=== PATIENT | male | born 1965 | race Caucasian/White ===

== ENCOUNTER 2021-09-25 19:51 | Inpatient (IN) | payer OTHER ==
[~2021-09-25] VITALS: Ht 180.3 cm; Wt 99.8 kg
[2021-09-25 19:59] VITALS: BP_SYST 189
[2021-09-25 20:48] LABS: BILIRUBIN,URINE NEGATIVE (NEGATIVE); BLOOD, URINE 2+ (NEGATIVE); CLARITY/URINE CLEAR (CLEAR); COLOR,URINE YELLOW (YELLOW); GLUCOSE,URINE 1+ (NEGATIVE); KETONES,URINE NEGATIVE (NEGATIVE); LEUKOCYTE ESTERASE ,URINE NEGATIVE (NEGATIVE); NITRITE, URINE NEGATIVE (NEGATIVE); PROTEIN URINE 3+ (NEGATIVE); UROBILINOGEN,URINE 0.2 (0.2-1.0)
[2021-09-25 20:55] LABS: BACTERIA,URINE None Seen /HPF (None Seen); MUCUS,URINE None Seen /LPF (None Seen); RBC,URINE NONE SEEN /HPF (0-3); WBC,URINE 0-3 /HPF (0-3)
[2021-09-25 21:05] LABS: BASOPHILS % (AUTO) 0.8 % (0.0-2.0); EOSINOPHILS # (AUTO) 0.1 K/uL (0.0-0.4); HEMATOCRIT 24.5 % (36-54); HEMOGLOBIN 8.4 g/dL (14.0-18.0); LYMPHOCYTES # (AUTO) 0.7 K/uL (1.0-5.5); LYMPHOCYTES % (AUTO) 14.2 % (20.5-51.5); MEAN CORPUSCULAR HEMOGLOBIN 32 pg (27-31); MEAN CORPUSCULAR HGB CONC 34 % (32-36); MEAN CORPUSCULAR VOLUME 94 fL (79.0-98.0); MONOCYTES # (AUTO) 0.4 K/uL (0.0-1.0); MONOCYTES % (AUTO) 7.5 % (1.7-9.3); NEUTROPHILS # (AUTO) 3.9 K/uL (1.8-7.7); NEUTROPHILS % (AUTO) 75.5 % (40.0-70.0); PLATELET COUNT (AUTO) 217 K/uL (130-430); RED BLOOD CELL COUNT(AUTO) 2.62 MIL/uL (4.2-6.2); RED CELL DISTRIBUTION WIDTH 13.6 % (9.0-15.0); WHITE BLOOD COUNT (AUTO) 5.1 K/uL (4.8-10.8)
[2021-09-25 21:09] LABS: CREATININE 5.49 mg/dL (0.55-1.30); POTASSIUM 4.7 mmol/L (3.5-5.1)
[2021-09-25 21:10] LABS: PROTHROMBIN TIME 10.2 SECS (9.5-12.5)
[2021-09-25 21:14] LABS: ALBUMIN 2.4 g/dL (3.4-4.8); TOTAL BILIRUBIN 0.2 mg/dL (0.0-1.0)
--- NOTE | 2021-09-25 21:18 | NUR ---
Patient to ER bed 02 to gown for evaluation. Side rails up.
--- NOTE | 2021-09-25 21:18 | NUR ---
Report given to Neil NEVAREZ
--- NOTE | 2021-09-25 21:35 | NUR ---
PT DROVE HIMSELF, BUT ALLEGES HE HAS HARD TIME SEING EVEN WITH HIS GLASSES.PT PRESENTED TO ER WITH COMPLIANTS OF SHORTNESS OF BREAST,CHEST PAIN, RIGHT LEG AND RIGHT ARM PAIN AND ADEMA, PT ALSO STATED HE HAS HAD A BAD HEADACHE FOR THE PAST MONTH OF 01/06. PT VS ARE WITHIN NORMAL LIMITS. PT IS IN BED WITH BED LOWERED, LOCKED AND RAILS UP. WILL CONTINUE TO MONITOR.
--- NOTE | 2021-09-25 21:47 | NUR ---
ASSESS PT FEET, PT HAS A A BLISTER ON HIS RIGHT BIG TOE. PT DOES HAVE A HX OF SEIZURES, LAST SEIZURE WAS IN 2019. PT DOES STATE HE DRINKS LAST DRINK WAS THIS MORNING AT 10AM.
[2021-09-25 21:48] LABS: CALCIUM 6.8 mg/dL (8.4-11.0)
[2021-09-25] MEDS ORDERED: CALCIUM GLUCONATE 1 GM in NS 100 ML IV ONE (23:15)
[2021-09-25] MEDS ORDERED: hydrALAZINE HCL 20 MG/ML VIAL IVP ONE (23:30)
[2021-09-25] MEDS ORDERED: NITROGLYCERIN 1 INCH (GM) OINT. TP ONE (23:30)
[2021-09-25] MEDS ORDERED: FUROSEMIDE 100 MG/10 ML VIAL IVP ONE (23:30)
[2021-09-25 23:56] LABS: BARBITURATE, URINE NEGATIVE (NEG <=200); BENZODIAZEPINE, URINE NEGATIVE (NEG <=150); COCAINE, URINE NEGATIVE (NEG <=150); METHAMPHETAMINES SCREEN,URINE POSITIVE (NEG <=500); URINE AMPHETAMINE POSITIVE (NEG <=500); URINE METHADONE NEGATIVE (NEG <=200)
[2021-09-25 23:57] LABS: CANNABINOID, URINE POSITIVE (NEG <=50); OPIATE, URINE NEGATIVE (NEG <=100); PHENCYCLIDINE SCREEN,URINE NEGATIVE (NEG <=25); UR TRICYCLIC ANTIDEPRESSANTS NEGATIVE (NEG <=300); URINE OXYCODONE SCREEN NEGATIVE (NEG <=100); URINE PROPOXYPHENE SCREEN NEGATIVE (NEG <=300)
[2021-09-26] MEDS ORDERED: CALCIUM GLUCONATE 1 GM/10 ML VIAL ONE (00:05)
--- NOTE | 2021-09-26 00:26 | NUR ---
Admit bed requested Patient will be admitted to care of . Admitted to TELE unit. Diagnosis SOB Inpatient (Yes or No) YES Observation (Yes or No) NO Orientation concerns or request close to nursing station (Yes or No) NO Covid Status PENDING On vent or bipap NO Isolation requirements NO Needs a sitter NO From Home (Yes or if No enter name of facility) YES Requires Dialysis (Yes or No) NO Med Rec Completed (Yes of No) PENDING
[2021-09-26] MEDS ORDERED: MORPHINE 4 MG INJ. 4 MG/ML VIAL IVP ONE (00:30)
[2021-09-26] MEDS ORDERED: NOR10 PO (02:49)
[2021-09-26] MEDS ORDERED: SERT100T PO (02:49)
[2021-09-26] MEDS ORDERED: METF-381 PO (02:49)
[2021-09-26] MEDS ORDERED: LIP40 PO (02:49)
[2021-09-26] MEDS ORDERED: CARV3.1246 PO (02:49)
[2021-09-26] MEDS ORDERED: GABA800T PO (02:49)
[2021-09-26] MEDS ORDERED: GLIP10TA11 PO (02:51)
--- NOTE | 2021-09-26 03:32 | NUR ---
CONSULTATION PAGED/CALLED Reason for Consultation: SOB; HTN Person Who was Notified: ELOISE Consulting Physician: Dr. VALENTE Spud Sorter Specialty: WARP TESTER Ordering Physician: DR. KHAN
[2021-09-26 03:34] VITALS: BP_SYST 175
--- NOTE | 2021-09-26 03:40 | NUR ---
Patient will be admitted to care of DR KHAN. Admitted to unit. Will go to room . Belongings list completed. Complete and up to date summary report printed. SBAR report to be given at bedside with opportunity for questions.
[2021-09-26] MEDS: hydrALAZINE HCL 20 MG/ML VIAL IVP PRN ×2 (04:36→20:14)
[2021-09-26] MEDS ORDERED: ONDANSETRON HCL 4 MG/2 ML VIAL IVP PRN (07:00)
[2021-09-26] MEDS ORDERED: ACETAMINOPHEN 325 MG TABLET PO PRN (07:00)
[2021-09-26] MEDS ORDERED: HYDROcodone/ACETAMIN 5-325 MG TAB (NORCO/ VICODIN) PO PRN (07:00)
[2021-09-26] MEDS ORDERED: MORPHINE 2 MG/ML INJ. SYRINGE IVP PRN (07:00)
--- NOTE | 2021-09-26 07:49 | NUR ---
CONSULTATION PAGED/CALLED Reason for Consultation: [] RAJINDER Person Who was Notified: [] CHRISTA Consulting Physician: [] DR VIEIRA Sales Applications Engineer Specialty: [] NEPHRO Ordering Physician: [] DR KHAN
[2021-09-26 08:00] VITALS: BP_SYST 170
--- NOTE | 2021-09-26 08:09 | NUR ---
DIRECTORY ASSISTANCE OPERATOR DR VALENTE REQUESTED PT'S RECORD AT [facility]. SPOKE TO LIBAN. ([facility])
[2021-09-26 08:11] LABS: TOTAL IRON BIND. CAPACITY 116 ug/dL (250-450)
[2021-09-26] MEDS ORDERED: GABAPENTIN 400 MG CAPSULE PO SCH (09:00)
[2021-09-26] MEDS: ATORVASTATIN 20 MG TABLET PO SCH (11:42)
[2021-09-26] MEDS: ASPIRIN 81 MG TAB.CHEW PO SCH (11:42)
[2021-09-26] MEDS: amLODIPine BESYLATE 10 MG TABLET PO SCH (11:42)
[2021-09-26] MEDS: SERTRALINE HCL 50 MG TABLET PO SCH (11:43)
[2021-09-26] MEDS: CALCIUM ACETATE 667 MG CAP PO SCH ×2 (11:43→18:21)
[2021-09-26 12:00] VITALS: BP_SYST 166
[2021-09-26] MEDS: SOD FERRIC GLUC COMPLEX/SUC 125 MG in NS 100 ML IV SCH (13:20)
[2021-09-26 16:00] VITALS: BP_SYST 139
[2021-09-26] MEDS ORDERED: metFORMIN HCL 500 MG TABLET PO SCH (18:00)
--- NOTE | 2021-09-26 19:20 | NUR ---
OPENING NOTE REPORT RECEIVED FROM DAYSHIFT NURSE. PATIENT RECEIVED SITTING UP IN BED, NO S/S OF ACUTE DISTRESS. BREATHING EVEN AND UNLABORED. IVF INFUSING WELL, IV SITE PATENT, NO SIGNS OF INFILTRATION OR INFECTION NOTED. SKIN WARM AND DRY TO TOUCH, NO S/S OF HYPOGLYCEMIA NOTED. CALL LIGHT WITH PATIENT. BED IS LOCKED AND AT LOWEST POSITION. WILL CONTINUE TO MONITOR.
[2021-09-26 20:00] VITALS: BP_SYST 188
[2021-09-26] MEDS: GABAPENTIN 100 MG CAPSULE PO SCH (20:08)
[2021-09-27 06:03] LABS: EOSINOPHILS # (AUTO) 0.2 K/uL (0.0-0.4); EOSINOPHILS % (AUTO) 4.7 % (0.0-4.0); HEMATOCRIT 25.2 % (36-54); HEMOGLOBIN 8.6 g/dL (14.0-18.0); LYMPHOCYTES # (AUTO) 0.7 K/uL (1.0-5.5); LYMPHOCYTES % (AUTO) 15.2 % (20.5-51.5); MEAN CORPUSCULAR HEMOGLOBIN 32 pg (27-31); MEAN CORPUSCULAR HGB CONC 34 % (32-36); MEAN CORPUSCULAR VOLUME 93 fL (79.0-98.0); MONOCYTES # (AUTO) 0.5 K/uL (0.0-1.0); MONOCYTES % (AUTO) 10.3 % (1.7-9.3); NEUTROPHILS # (AUTO) 3.3 K/uL (1.8-7.7); NEUTROPHILS % (AUTO) 68.8 % (40.0-70.0); PLATELET COUNT (AUTO) 188 K/uL (130-430); RED CELL DISTRIBUTION WIDTH 13.6 % (9.0-15.0); WHITE BLOOD COUNT (AUTO) 4.8 K/uL (4.8-10.8)
[2021-09-27 06:06] VITALS: BP_SYST 158
[2021-09-27 06:29] LABS: CREATININE 4.76 mg/dL (0.55-1.30); PHOSPHORUS 5.7 mg/dL (2.7-4.5); POTASSIUM 4.8 mmol/L (3.5-5.1)
--- NOTE | 2021-09-27 06:29 | NUR ---
CLOSING NOTE PATIENT IN BED RESTING. NO S/S OF ACUTE DISTRESS NOTED. BREATHING EVEN AND UNLABORED. IV SITE IS PATENT, NO SIGNS OF INFILTRATION OR INFECTION NOTED. SKIN WARM AND DRY TO TOUCH, NO S/S OF HYPOGLYCEMIA NOTED. ALL NEEDS MET THROUGHOUT SHIFT. FALL, SAFETY PRECAUTIONS MAINTAINED. WILL CONTINUE TO MONITOR UNTIL PATIENT CARE IS ENDORSED TO ONCOMING DAYSHIFT NURSE.
[2021-09-27 07:07] LABS: FOLATE (FOLIC ACID) 12.3 ng/mL (>3.0)
[2021-09-27 08:00] VITALS: BP_SYST 174
[2021-09-27] MEDS: CALCIUM ACETATE 667 MG CAP PO SCH ×3 (08:30→17:02)
[2021-09-27] MEDS: GABAPENTIN 100 MG CAPSULE PO SCH (08:31)
[2021-09-27] MEDS: ASPIRIN 81 MG TAB.CHEW PO SCH (08:31)
[2021-09-27] MEDS: NEPHROVITE, (FOLIC ACID/VITAMIN B COMP W-C 1 TAB) PO SCH (08:31)
[2021-09-27] MEDS: ATORVASTATIN 20 MG TABLET PO SCH (08:31)
[2021-09-27] MEDS: amLODIPine BESYLATE 10 MG TABLET PO SCH (08:31)
[2021-09-27] MEDS: SERTRALINE HCL 50 MG TABLET PO SCH (08:32)
[2021-09-27 09:22] LABS: CALCIUM 6.4 mg/dL (8.4-11.0)
[2021-09-27] MEDS: SOD FERRIC GLUC COMPLEX/SUC 125 MG in NS 100 ML IV SCH (11:51)
[2021-09-27 12:00] VITALS: BP_SYST 160
--- NOTE | 2021-09-27 14:41 | NUR ---
CIRCULATION MANAGER SCARLET Ramos responded to a request for Social Service support from GERI Palma who shared patient was expressing not wanting to return to [facility] and expressed wanting to speak to [employer]. RECTIFYING ATTENDANT Rachel met with patient at bedside. Patient was alert and orientated x4. RECTIFYING ATTENDANT completed introductions, reason for referral, and provided business card, patient was open to contact. Current concern- Patient expressed concerns with returning to his senior care. Patient also inquired into status of obtaining a FWW. RECTIFYING ATTENDANT explored patient's concerns for returning to [facility] due to "being tired of staying there". Social- The patient states he has adult children, but is unable to stay with them at this time. RECTIFYING ATTENDANT explored friends and extended family persons, but patient stated he can not stay with them and expressed "i don't have any friends". Housing- Patient shares he has been homeless on and off for 5 years. He has resided in [facility] off an on since 02/2021. He shared that with the support of [facility] Still Operator Batch Or Continuous Anastasia Bailey , he has received a [address] voucher for an apartment. According to patient, he is required to secure an apartment within 60 days of receipt of voucher and was concerned this will while inpatient RECTIFYING ATTENDANT discussed the patient continuing to utilize Still Operator Batch Or Continuous Anastasia's support with obtaining housing. RECTIFYING ATTENDANT acknowledged patient's feelings related to being tired of the senior care, and utilized problem solving therapy techniques to reflect on the obtainment of the voucher and the support being offered if he were to return to the safety of the senior care. Patient provided permission to contact Still Operator Batch Or ContinuousManager Oconnor to obtain additional information on utilizing voucher.
--- NOTE | 2021-09-27 14:45 | NUR ---
DORMITORY MAID PRICE ACCURACY SUPERVISOR Rachel contacted [facility] Jennifer to confirm order of FWW. Voicemail was left requesting call back.
--- NOTE | 2021-09-27 14:50 | NUR ---
HEDDLER TIER SCARLET Ramos attempted contact to [facility] Case Manager Anastasia Bailey to obtain clarification on process to obtain housing with voucher. Voicemail requesting call back was left. CHIEF LIFESTYLE OFFICER contacted [facility] . According to secretary receptionist Asia, the patient had received voucher and it would be beneficial for patient to return upon discharge to continue working with case management to obtain apartment. She also shared "leads" are [id number] to client to followup on to secure housing. CHIEF LIFESTYLE OFFICER left contact information for call back. Addendum: 09/27/21 at 1630 by Rachel NOVAK SCARLET Narayanette received a call from Anastasia Bailey. According to Anastasia, due to not being on patient's discloser list she is unable to share any information regarding services to this CHIEF LIFESTYLE OFFICER. She shared it would be best for patient to return to [facility] to continue to receive case management services and support with locating housing. SCARLET ramos met with patient at bedside and provided update to patient. CHIEF LIFESTYLE OFFICER also provided patient with Homeless resource packet. Patient stated he would return to [facility] upon discharge/
[2021-09-27 16:00] VITALS: BP_SYST 187
[2021-09-27 17:05] VITALS: BP_SYST 155
[2021-09-28] MEDS: GABAPENTIN 100 MG CAPSULE PO SCH ×2 (05:42→08:23)
[2021-09-28 05:48] VITALS: BP_SYST 182
[2021-09-28 07:45] LABS: EOSINOPHILS # (AUTO) 0.1 K/uL (0.0-0.4); EOSINOPHILS % (AUTO) 3.3 % (0.0-4.0); HEMATOCRIT 23.9 % (36-54); HEMOGLOBIN 8.3 g/dL (14.0-18.0); LYMPHOCYTES # (AUTO) 0.7 K/uL (1.0-5.5); LYMPHOCYTES % (AUTO) 18.5 % (20.5-51.5); MEAN CORPUSCULAR HEMOGLOBIN 32 pg (27-31); MEAN CORPUSCULAR HGB CONC 35 % (32-36); MEAN CORPUSCULAR VOLUME 93 fL (79.0-98.0); MONOCYTES # (AUTO) 0.3 K/uL (0.0-1.0); NEUTROPHILS # (AUTO) 2.4 K/uL (1.8-7.7); NEUTROPHILS % (AUTO) 69.2 % (40.0-70.0); PLATELET COUNT (AUTO) 190 K/uL (130-430); RED BLOOD CELL COUNT(AUTO) 2.58 MIL/uL (4.2-6.2); RED CELL DISTRIBUTION WIDTH 13.8 % (9.0-15.0); WHITE BLOOD COUNT (AUTO) 3.5 K/uL (4.8-10.8)
[2021-09-28 08:00] VITALS: BP_SYST 183
[2021-09-28 08:01] LABS: CREATININE 4.49 mg/dL (0.55-1.30); POTASSIUM 4.4 mmol/L (3.5-5.1)
--- NOTE | 2021-09-28 08:15 | NUR ---
patient stated he lost his walker provided by his insurance. told him that i looked for it in the room he said and it is not there.
[2021-09-28 08:16] LABS: CALCIUM 6.2 mg/dL (8.4-11.0)
[2021-09-28] MEDS: NEPHROVITE, (FOLIC ACID/VITAMIN B COMP W-C 1 TAB) PO SCH (08:23)
[2021-09-28] MEDS: CALCIUM ACETATE 667 MG CAP PO SCH ×2 (08:23→12:32)
[2021-09-28] MEDS: ATORVASTATIN 20 MG TABLET PO SCH (08:23)
[2021-09-28] MEDS: SERTRALINE HCL 50 MG TABLET PO SCH (08:23)
[2021-09-28] MEDS: ASPIRIN 81 MG TAB.CHEW PO SCH (08:24)
[2021-09-28] MEDS: amLODIPine BESYLATE 10 MG TABLET PO SCH (08:25)
--- NOTE | 2021-09-28 08:33 | NUR ---
patient said he wants to leave now. told him i will work on his dc papers.
[2021-09-28] MEDS ORDERED: FURO-149 PO (10:12)
[2021-09-28 11:00] VITALS: BP_SYST 185
[2021-09-28] MEDS ORDERED: hydrALAZINE HCL 10 MG TABLET PO ONE (11:00)
[2021-09-28] MEDS ORDERED: LISI20TA30 PO (11:12)
[2021-09-28] MEDS ORDERED: hydrALAZINE HCL 10 MG TABLET ONE (11:14)
[2021-09-28 11:29] VITALS: BP_SYST 178
[2021-09-28] MEDS: SOD FERRIC GLUC COMPLEX/SUC 125 MG in NS 100 ML IV SCH (12:00)
[2021-09-28] MEDS ORDERED: lisinopriL 20 MG TABLET PO ONE (12:45)
--- NOTE | 2021-09-28 12:45 | NUR ---
PT'S BP STILL ELEVATED AFTER GIVEN 20 MG PO APRESSOLINE, DR ALLEN MADE AWARE , NEW ORDER GIVEN AND CARRIED OUT.
[2021-09-28 13:58] VITALS: BP_SYST 178
--- NOTE | 2021-09-28 14:00 | NUR ---
Pt's bp is now 178/94, Informed pt that we want it a little lower, pt insist that he wants to go home home. Pt instructed to see his PCP remi regarding his admission and bp. instructed pt to garbage pick up man his prescription from his pharmacy.
--- NOTE | 2021-09-28 14:30 | NUR ---
D/C Patient Patient given medication reconciliation form and D/C instructions. Exit Care provided. Patient verbalized understanding. MD discussed with patient the results and treatment provided. Ambulatory with steady gait for discharge to home, pt has DME of walker and cane. Patient in stable condition, ID band removed. IV catheter removed, intact and dressing applied, no active bleeding. ERx of LASIX, LISINOPRIL given. Patient educated on pain management. All belongings sent with patient.
[2021-09-28] MEDS ORDERED: EPOETIN ALFA-EPBX 4,000 UNITS/ML VIAL SUBCUT SCH (17:00)
--- NOTE | 2021-09-29 13:11 | NUR ---
dispo code 01
--- NOTE | 2021-10-02 11:20 | NUR ---
LONG TERM ASSISTANT AUTO CENTER MANAGER Rachel received a request from [facility] Jennifer for support in contacting patient due to Home health agency expressing difficulties with reaching patient. ASSISTANT AUTO CENTER MANAGER providing Jennifer with [facility] [employer] speech language pathologist Anastasia Bailey contact info
== END 2021-09-28 14:20 | disposition home or self-care (01) | DRG 291 ==
LOC: SED 19:51 → STU 09-26 00:23 → SMU 09-28 00:03
PROVIDERS: ADMIT Student in an Organized Health Care Education/Training Program; ATTEND Student in an Organized Health Care Education/Training Program
DX: I13.2 Hypertensive heart and chronic kidney disease with heart failure and with stage 5 chronic kidney disease, or end stage renal disease (principal); I50.43 Acute on chronic combined systolic (congestive) and diastolic (congestive) heart failure; N17.0 Acute kidney failure with tubular necrosis; N18.5 Chronic kidney disease, stage 5; M79.89 Other specified soft tissue disorders; E88.09 Other disorders of plasma-protein metabolism, not elsewhere classified; F19.10 Other psychoactive substance abuse, uncomplicated; M19.90 Unspecified osteoarthritis, unspecified site; G89.4 Chronic pain syndrome; E78.5 Hyperlipidemia, unspecified; R56.9 Unspecified convulsions; D63.8 Anemia in other chronic diseases classified elsewhere; Z20.822 Contact with and (suspected) exposure to COVID-19; E11.22 Type 2 diabetes mellitus with diabetic chronic kidney disease; Z59.02 Unsheltered homelessness; Z79.84 Long term (current) use of oral hypoglycemic drugs; Z79.899 Other long term (current) drug therapy
CPT/HCPCS: 36415; 71046-TC; 76770; 80048; 80053; 80307; 81000; 82607; 82746; 83540; 83550; 83735; 83880; 84100; 84484; 85025; 85610-TC; 93005; 93306; 93970; 96361; 96374; 96375; 99285; G0378; G0482; J0360; J0610; J1940; J2270; J2916; Q5106